=== PATIENT | male | born 1955 | race African-American/Black ===

== ENCOUNTER 2018-04-03 10:17 | Observation (INO) ==
[2018-04-03] MEDS ORDERED: FUROSEMIDE 100 MG/10 ML VIAL IV STA (10:58)
[2018-04-03] MEDS ORDERED: LEVOFLOXACIN INJ 500 MG in PREMIX 1 EACH IV STA (11:25)
[2018-04-03 12:03] LABS: Basophils % 0.2 % (0.0-0.8); Eosinophils # 0.1 10*3/uL (0.0-0.87); Eosinophils % 1.5 % (0.00-10.9); Hemoglobin 11.8 GM/DL (14.0-18.0); Immature Granulocytes % 0.7 %; Immature Granulocytes Absolute 0.07 #; Lymphocytes # 1.3 10*3/uL (1.4-4.0); Lymphocytes % 14.1 % (21.2-54.2); Mean Corpuscular HGB Conc 32.8 GM/DL (32-36); Mean Corpuscular Hemoglobin 31 PG (27-34); Mean Corpuscular Volume 93.3 FL (87-102); Mean Platelet Volume 10.3 FL (9.6-12.0); Monocytes # 0.7 10*3/uL (0.11-0.8); Monocytes % 7.8 % (1.7-12.7); Neutrophils # 7.1 10*3/uL (1.4-7.4); Neutrophils % 75.7 % (38.7-73.9); Platelet Count 358 T/CUMM (130-400); Red Blood Count 3.86 MC/CUMM (3.8-5.5); Red Cell Distribution Width 12.3 % (9.3-17.3); White Blood Count 9.4 T/CUMM (4-12)
[2018-04-03] MEDS ORDERED: PROMETHAZINE 25 MG/1 ML VIAL IM PRN (12:25)
[2018-04-03] MEDS ORDERED: ONDANSETRON 4 MG/2 ML VIAL IV PRN (12:25)
[2018-04-03 12:30] LABS: Albumin 3.4 G/DL (3.4-5.0); Bilirubin,Total 1.3 MG/DL (0.2-1.0); Calcium 8.7 MG/DL (8.5-10.1); Osmolality,Calculated 285.3 MOS/KG (273-304); Potassium 3.9 MMOL/L (3.5-5.1); Total Protein 7.6 G/DL (6.4-8.3)
[2018-04-03] MEDS ORDERED: ALBUTEROL 2.5 MG/3 ML NEB RESP TX PRN (12:52)
[2018-04-03] MEDS ORDERED: LEVOFLOXACIN INJ 750 MG in PREMIX 1 EACH IV SCH (13:00)
[2018-04-03] MEDS: ALBUTEROL/IPRATROPIUM 3 ML NEB RESP TX SCH ×2 (13:30→19:31)
[2018-04-03] MEDS: FUROSEMIDE 40 MG/4 ML VIAL IV SCH (15:53)
[2018-04-03] MEDS: POTASSIUM CHLORIDE 20 MEQ TABLET PO SCH ×2 (15:53→21:37)
[2018-04-03] MEDS: guaiFENesin/DM ER 600-30 MG TABLET PO SCH (21:37)
[2018-04-03] MEDS: SACUBITRIL/VALSARTAN 49-51 MG TABLET PO SCH (21:37)
[2018-04-03] MEDS: CARVEDILOL 25 MG TABLET PO SCH (21:38)
[2018-04-04] MEDS: ALBUTEROL/IPRATROPIUM 3 ML NEB RESP TX SCH ×4 (01:03→19:45)
[2018-04-04 06:06] LABS: Basophils % 0.3 % (0.0-0.8); Eosinophils # 0.2 10*3/uL (0.0-0.87); Eosinophils % 2.7 % (0.00-10.9); Hematocrit 32.4 VOL% (42.0-52.0); Hemoglobin 10.3 GM/DL (14.0-18.0); Immature Granulocytes % 0.4 %; Immature Granulocytes Absolute 0.03 #; Lymphocytes # 1.3 10*3/uL (1.4-4.0); Lymphocytes % 18.4 % (21.2-54.2); Mean Corpuscular HGB Conc 31.8 GM/DL (32-36); Mean Corpuscular Hemoglobin 29 PG (27-34); Mean Platelet Volume 10.5 FL (9.6-12.0); Monocytes # 0.6 10*3/uL (0.11-0.8); Monocytes % 7.7 % (1.7-12.7); Neutrophils # 5.1 10*3/uL (1.4-7.4); Neutrophils % 70.5 % (38.7-73.9); Platelet Count 298 T/CUMM (130-400); Red Blood Count 3.52 MC/CUMM (3.8-5.5); Red Cell Distribution Width 12.3 % (9.3-17.3); White Blood Count 7.2 T/CUMM (4-12)
[2018-04-04 06:33] LABS: Albumin 2.9 G/DL (3.4-5.0); Bilirubin,Total 1.2 MG/DL (0.2-1.0); Calcium 8.3 MG/DL (8.5-10.1); Osmolality,Calculated 286.1 MOS/KG (273-304); Risk Ratio 2.37; Thyroid Stimulating Hormone 1.72 uIU/ml (0.358-3.74); Total Protein 6.1 G/DL (6.4-8.3); VLDL CHOLESTEROL 21.4 MG/DL
[2018-04-04] MEDS: SACUBITRIL/VALSARTAN 49-51 MG TABLET PO SCH ×2 (08:52→20:57)
[2018-04-04] MEDS: sitaGLIPtin 100 MG TABLET PO SCH (08:52)
[2018-04-04] MEDS: FUROSEMIDE 40 MG/4 ML VIAL IV SCH ×2 (08:53→16:02)
[2018-04-04] MEDS: SPIRONOLACTONE 25 MG TABLET PO SCH (08:53)
[2018-04-04] MEDS: CARVEDILOL 25 MG TABLET PO SCH ×2 (08:53→20:57)
[2018-04-04] MEDS: BUMETANIDE 1 MG TABLET PO SCH (08:53)
[2018-04-04] MEDS: PANTOPRAZOLE 40 MG TABLET PO SCH (08:53)
[2018-04-04] MEDS: guaiFENesin/DM ER 600-30 MG TABLET PO SCH ×2 (08:53→20:57)
[2018-04-04] MEDS: POTASSIUM CHLORIDE 20 MEQ TABLET PO SCH ×2 (08:53→20:57)
[2018-04-04] MEDS: MULTIVITAMIN (CENTRUM) TABLET PO SCH (08:53)
[2018-04-04] MEDS: amLODIPine 5 MG TABLET PO SCH (13:40)
[2018-04-05] MEDS: ALBUTEROL/IPRATROPIUM 3 ML NEB RESP TX SCH ×2 (00:45→07:21)
[2018-04-05 06:01] LABS: Osmolality,Calculated 289.1 MOS/KG (273-304); Potassium 4.1 MMOL/L (3.5-5.1)
[2018-04-05] MEDS: SACUBITRIL/VALSARTAN 49-51 MG TABLET PO SCH (08:43)
[2018-04-05] MEDS: BUMETANIDE 1 MG TABLET PO SCH (08:43)
[2018-04-05] MEDS: FUROSEMIDE 40 MG/4 ML VIAL IV SCH (08:43)
[2018-04-05] MEDS: MULTIVITAMIN (CENTRUM) TABLET PO SCH (08:44)
[2018-04-05] MEDS: SPIRONOLACTONE 25 MG TABLET PO SCH (08:44)
[2018-04-05] MEDS: sitaGLIPtin 100 MG TABLET PO SCH (08:44)
[2018-04-05] MEDS: guaiFENesin/DM ER 600-30 MG TABLET PO SCH (08:44)
[2018-04-05] MEDS: POTASSIUM CHLORIDE 20 MEQ TABLET PO SCH (08:44)
[2018-04-05] MEDS: CARVEDILOL 25 MG TABLET PO SCH (08:44)
[2018-04-05] MEDS: amLODIPine 5 MG TABLET PO SCH (08:44)
[2018-04-05] MEDS: PANTOPRAZOLE 40 MG TABLET PO SCH (08:45)
[2018-04-05 11:09] VITALS: BP 132/98
== END 2018-04-05 12:00 | disposition home health service (06) ==
LOC: N.ED 10:17 → INTOOBSV 12:25 → N.EDINP 12:25 → N.5E 14:48
PROVIDERS: ADMIT Family Medicine; ATTEND Family Medicine

== ENCOUNTER 2020-07-23 09:22 | Inpatient (IN) ==
[2020-07-23 11:22] LABS: Basophils % 0.3 % (0.0-0.8); Eosinophils % 0.3 % (0.00-10.9); Hematocrit 39.4 VOL% (42.0-52.0); Hemoglobin 12.9 GM/DL (14.0-18.0); Immature Granulocytes % 1.1 %; Immature Granulocytes Absolute 0.07 #; Lymphocytes # 0.6 10*3/uL (1.4-4.0); Lymphocytes % 10.1 % (21.2-54.2); Mean Corpuscular HGB Conc 32.7 GM/DL (32-36); Mean Corpuscular Volume 87.9 FL (87-102); Mean Platelet Volume 9.7 FL (9.6-12.0); Monocytes % 4.7 % (1.7-12.7); Neutrophils % 83.5 % (38.7-73.9); Platelet Count 339 T/CUMM (130-400); Red Blood Count 4.48 MC/CUMM (3.8-5.5); Red Cell Distribution Width 11.9 % (9.3-17.3); White Blood Count 6.1 T/CUMM (4-12)
[2020-07-23 11:44] LABS: PT Patient Result 10.7 SECS (9.8-11.9)
[2020-07-23 11:51] LABS: Albumin 2.3 G/DL (3.4-5.0); Bilirubin,Total 0.9 MG/DL (0.2-1.0); Calcium 7.5 MG/DL (8.5-10.1); Ferritin 1570.5 ng/ml (26-388); Potassium 3.3 MMOL/L (3.5-5.1)
[2020-07-23] MEDS ORDERED: AZITHROMYCIN INJ 500 MG in SODIUM CHLORIDE 0.9% 250 ML IV STA (11:51)
[2020-07-23] MEDS ORDERED: DEXAMETHASONE 4 MG/1 ML VIAL IV STA (11:51)
[2020-07-23 11:57] LABS: Atypical Lymphocytes Few; Band Neutrophils 3 % (0-10); Lymphocytes 12 % (20-55); Metamyelocytes 1 %; Segmented Neutrophils 77 % (50-85); Total Cells Counted 100
[2020-07-23 11:58] LABS: Hypochromasia 1+; Microcytosis 1+; Platelet Estimate Normal
[2020-07-23] MEDS ORDERED: ONDANSETRON 4 MG/2 ML VIAL IV PRN (12:56)
[2020-07-23] MEDS ORDERED: GLUCAGON 1 MG VIAL IM PRN (12:56)
[2020-07-23] MEDS ORDERED: DEXTROSE 50% 25 GM/50 ML VIAL IV PRN (12:56)
[2020-07-23] MEDS: SODIUM CHLORIDE 0.9% 1,000 ML IV SCH ×2 (14:06→20:19)
[2020-07-23] MEDS ORDERED: cefTRIAXone 1,000 MG in SYRINGE 1 EACH IV SCH (15:00)
[2020-07-23] MEDS ORDERED: INFLUENZA VIRUS VACCINE 0.5 ML SYRINGE IM ONE (15:22)
[2020-07-23] MEDS: ZINC GLUCONATE 50 MG TABLET PO SCH (15:35)
[2020-07-23] MEDS: ENOXAPARIN 40 MG/0.4 ML SYRINGE SUBCUT SCH (15:35)
[2020-07-23] MEDS: CHOLECALCIFEROL 1,000 UNIT TABLET PO SCH (15:35)
[2020-07-23] MEDS: ASCORBIC ACID 500 MG TABLET PO SCH ×2 (15:35→20:41)
[2020-07-23] MEDS: POTASSIUM CHLORIDE 20 MEQ TABLET PO PRN (16:30)
[2020-07-23] MEDS: INSULIN LISPRO 100 UNIT/ML SUBCUT SCH ×2 (16:30→20:41)
[2020-07-23] MEDS: FAMOTIDINE 20 MG TABLET PO SCH (20:41)
[2020-07-24] MEDS: ENOXAPARIN 40 MG/0.4 ML SYRINGE SUBCUT SCH ×2 (00:18→14:35)
[2020-07-24 05:23] LABS: Basophils % 0.3 % (0.0-0.8); Hematocrit 33.7 VOL% (42.0-52.0); Hemoglobin 11.1 GM/DL (14.0-18.0); Immature Granulocytes Absolute 0.08 #; Lymphocytes # 0.6 10*3/uL (1.4-4.0); Lymphocytes % 15.1 % (21.2-54.2); Mean Corpuscular HGB Conc 32.9 GM/DL (32-36); Mean Corpuscular Volume 88.7 FL (87-102); Monocytes % 5.6 % (1.7-12.7); Platelet Count 333 T/CUMM (130-400); Red Cell Distribution Width 11.9 % (9.3-17.3); White Blood Count 3.9 T/CUMM (4-12)
[2020-07-24 05:51] LABS: Albumin 1.8 G/DL (3.4-5.0); Bilirubin,Total 1.5 MG/DL (0.2-1.0); Calcium 7.3 MG/DL (8.5-10.1); Ferritin 1125.7 ng/ml (26-388); Osmolality,Calculated 282.7 MOS/KG (273-304); Potassium 3.3 MMOL/L (3.5-5.1); Total Protein 5.5 G/DL (5.0-7.5)
[2020-07-24 05:52] LABS: Burr Cells Slight; Hypochromasia 1+; Microcytosis 1+
[2020-07-24 05:53] LABS: Platelet Estimate Normal
[2020-07-24] MEDS: POTASSIUM CHLORIDE 20 MEQ TABLET PO PRN ×3 (06:12→17:29)
[2020-07-24] MEDS: SODIUM CHLORIDE 0.9% 1,000 ML IV SCH (06:12)
[2020-07-24 06:50] LABS: Sedimentation Rate-Westergren 80 MM/HR (0-20)
[2020-07-24] MEDS ORDERED: MAGNESIUM SULF RIDER 2 GM in PREMIX 1 EACH IV ONE (08:09)
[2020-07-24] MEDS: INSULIN LISPRO 100 UNIT/ML SUBCUT SCH ×4 (08:27→20:56)
[2020-07-24] MEDS: FAMOTIDINE 20 MG TABLET PO SCH ×2 (08:28→20:57)
[2020-07-24] MEDS: CHOLECALCIFEROL 1,000 UNIT TABLET PO SCH (08:28)
[2020-07-24] MEDS: CETIRIZINE 10 MG TABLET PO SCH (08:29)
[2020-07-24] MEDS: PANTOPRAZOLE 40 MG TABLET PO SCH (08:29)
[2020-07-24] MEDS: ASCORBIC ACID 500 MG TABLET PO SCH ×2 (08:29→20:57)
[2020-07-24] MEDS: AZITHROMYCIN 250 MG TABLET PO SCH (08:45)
[2020-07-24] MEDS: ZINC GLUCONATE 50 MG TABLET PO SCH (08:45)
[2020-07-24] MEDS ORDERED: DEXAMETHASONE 4 MG/1 ML VIAL IV SCH (09:00)
[2020-07-24] MEDS ORDERED: LOPERAMIDE 2 MG CAPSULE PO PRN (10:59)
[2020-07-24] MEDS: methylPREDNISolone SOD SUC 40 MG/1 ML VIAL IV SCH ×2 (11:54→17:30)
[2020-07-24] MEDS: DESITIN 4OZ/NYSTATIN 15 GRAM MIXTURE PASTE TOP SCH ×2 (11:54→20:58)
[2020-07-24] MEDS: carvediloL 25 MG TABLET PO SCH ×2 (11:54→20:57)
[2020-07-24] MEDS: MELATONIN 3 MG TABLET PO PRN (20:57)
[2020-07-24] MEDS ORDERED: INSULIN GLARGINE 100 UNIT/ML SUBCUT SCH (21:00)
[2020-07-25] MEDS: POTASSIUM CHLORIDE 20 MEQ TABLET PO PRN ×3 (00:16→05:51)
[2020-07-25] MEDS: ENOXAPARIN 40 MG/0.4 ML SYRINGE SUBCUT SCH ×2 (00:17→12:55)
[2020-07-25] MEDS: methylPREDNISolone SOD SUC 40 MG/1 ML VIAL IV SCH ×3 (01:35→17:56)
[2020-07-25 06:05] LABS: Hematocrit 33.1 VOL% (42.0-52.0); Immature Granulocytes % 0.9 %; Immature Granulocytes Absolute 0.08 #; Lymphocytes # 0.7 10*3/uL (1.4-4.0); Mean Corpuscular HGB Conc 33.2 GM/DL (32-36); Mean Corpuscular Volume 89.9 FL (87-102); Mean Platelet Volume 10.1 FL (9.6-12.0); Monocytes % 2.7 % (1.7-12.7); Neutrophils % 88.4 % (38.7-73.9); Platelet Count 398 T/CUMM (130-400); Red Blood Count 3.68 MC/CUMM (3.8-5.5); Red Cell Distribution Width 11.9 % (9.3-17.3); White Blood Count 9.2 T/CUMM (4-12)
[2020-07-25 06:31] LABS: Albumin 1.9 G/DL (3.4-5.0); Bilirubin,Total 0.5 MG/DL (0.2-1.0); Calcium 7.2 MG/DL (8.5-10.1); Ferritin 933.1 ng/ml (26-388); Osmolality,Calculated 288.5 MOS/KG (273-304); Potassium 3.8 MMOL/L (3.5-5.1); Total Protein 5.2 G/DL (5.0-7.5)
[2020-07-25 06:42] LABS: Hypochromasia Slight; Platelet Estimate Adequate
[2020-07-25 06:43] LABS: Microcytosis Slight
[2020-07-25 07:05] LABS: Sedimentation Rate-Westergren 74 MM/HR (0-20)
[2020-07-25] MEDS: INSULIN LISPRO 100 UNIT/ML SUBCUT SCH ×4 (08:45→21:02)
[2020-07-25] MEDS: FAMOTIDINE 20 MG TABLET PO SCH ×2 (08:46→21:03)
[2020-07-25] MEDS: ASCORBIC ACID 500 MG TABLET PO SCH ×2 (08:46→21:04)
[2020-07-25] MEDS: CHOLECALCIFEROL 1,000 UNIT TABLET PO SCH (08:46)
[2020-07-25] MEDS: CETIRIZINE 10 MG TABLET PO SCH (08:46)
[2020-07-25] MEDS: carvediloL 25 MG TABLET PO SCH ×2 (08:46→21:03)
[2020-07-25] MEDS: AZITHROMYCIN 250 MG TABLET PO SCH (08:46)
[2020-07-25] MEDS: PANTOPRAZOLE 40 MG TABLET PO SCH (09:11)
[2020-07-25] MEDS: DESITIN 4OZ/NYSTATIN 15 GRAM MIXTURE PASTE TOP SCH ×2 (09:11→21:04)
[2020-07-25] MEDS: ZINC GLUCONATE 50 MG TABLET PO SCH (09:11)
[2020-07-25] MEDS: SODIUM CHLORIDE 0.9% 1,000 ML IV SCH (10:12)
[2020-07-25] MEDS: INSULIN GLARGINE 100 UNIT/ML SUBCUT SCH (21:03)
[2020-07-25] MEDS: ACETAMINOPHEN 325 MG TABLET PO PRN (21:04)
[2020-07-25] MEDS: MELATONIN 3 MG TABLET PO PRN (21:04)
[2020-07-26] MEDS: ENOXAPARIN 40 MG/0.4 ML SYRINGE SUBCUT SCH ×2 (00:08→14:00)
[2020-07-26] MEDS: methylPREDNISolone SOD SUC 40 MG/1 ML VIAL IV SCH ×3 (03:22→17:57)
[2020-07-26 05:28] LABS: Basophils % 0.1 % (0.0-0.8); Hematocrit 34.8 VOL% (42.0-52.0); Immature Granulocytes Absolute 0.13 #; Lymphocytes # 0.5 10*3/uL (1.4-4.0); Lymphocytes % 4.2 % (21.2-54.2); Mean Corpuscular HGB Conc 31.6 GM/DL (32-36); Mean Corpuscular Volume 91.3 FL (87-102); Mean Platelet Volume 10.2 FL (9.6-12.0); Monocytes % 2.8 % (1.7-12.7); Neutrophils % 91.9 % (38.7-73.9); Platelet Count 409 T/CUMM (130-400); Red Blood Count 3.81 MC/CUMM (3.8-5.5); Red Cell Distribution Width 12.1 % (9.3-17.3); White Blood Count 12.8 T/CUMM (4-12)
[2020-07-26 05:59] LABS: Hypochromasia 1+; Lymphocytes 2 % (20-55); Microcytosis 1+; Platelet Estimate Adequate; Segmented Neutrophils 97 % (50-85); Total Cells Counted 100
[2020-07-26 06:34] LABS: Sedimentation Rate-Westergren 62 MM/HR (0-20)
[2020-07-26 06:44] LABS: Albumin 1.9 G/DL (3.4-5.0); Bilirubin,Total 0.5 MG/DL (0.2-1.0); Calcium 7.4 MG/DL (8.5-10.1); Ferritin 671.8 ng/ml (26-388); Osmolality,Calculated 285.5 MOS/KG (273-304); Potassium 3.6 MMOL/L (3.5-5.1); Total Protein 5.7 G/DL (5.0-7.5)
[2020-07-26] MEDS: carvediloL 25 MG TABLET PO SCH ×2 (08:47→21:48)
[2020-07-26] MEDS: FAMOTIDINE 20 MG TABLET PO SCH ×2 (08:47→21:48)
[2020-07-26] MEDS: ZINC GLUCONATE 50 MG TABLET PO SCH (08:47)
[2020-07-26] MEDS: CETIRIZINE 10 MG TABLET PO SCH (08:47)
[2020-07-26] MEDS: AZITHROMYCIN 250 MG TABLET PO SCH (08:47)
[2020-07-26] MEDS: CHOLECALCIFEROL 1,000 UNIT TABLET PO SCH (08:47)
[2020-07-26] MEDS: PANTOPRAZOLE 40 MG TABLET PO SCH (08:47)
[2020-07-26] MEDS: DESITIN 4OZ/NYSTATIN 15 GRAM MIXTURE PASTE TOP SCH ×2 (08:50→21:48)
[2020-07-26] MEDS: ASCORBIC ACID 500 MG TABLET PO SCH ×2 (08:50→21:48)
[2020-07-26] MEDS: SODIUM CHLORIDE 0.9% 1,000 ML IV SCH (09:00)
[2020-07-26] MEDS: INSULIN LISPRO 100 UNIT/ML SUBCUT SCH ×4 (09:20→20:45)
[2020-07-26] MEDS ORDERED: FUROSEMIDE 40 MG/4 ML VIAL IV ONE (15:44)
[2020-07-26] MEDS ORDERED: POTASSIUM CHLORIDE 20 MEQ TABLET PO ONE (16:13)
[2020-07-26] MEDS: INSULIN GLARGINE 100 UNIT/ML SUBCUT SCH (21:07)
[2020-07-26] MEDS: ACETAMINOPHEN 325 MG TABLET PO PRN (21:48)
[2020-07-26] MEDS: MELATONIN 3 MG TABLET PO PRN (21:48)
[2020-07-27] MEDS: methylPREDNISolone SOD SUC 40 MG/1 ML VIAL IV SCH ×3 (01:32→17:39)
[2020-07-27] MEDS: ENOXAPARIN 40 MG/0.4 ML SYRINGE SUBCUT SCH ×2 (01:32→12:20)
[2020-07-27 06:01] LABS: Calcium 7.2 MG/DL (8.5-10.1); Osmolality,Calculated 293.1 MOS/KG (273-304); Potassium 4.1 MMOL/L (3.5-5.1)
[2020-07-27] MEDS: PANTOPRAZOLE 40 MG TABLET PO SCH (09:31)
[2020-07-27] MEDS: INSULIN LISPRO 100 UNIT/ML SUBCUT SCH ×4 (09:31→21:25)
[2020-07-27] MEDS: ZINC GLUCONATE 50 MG TABLET PO SCH (09:31)
[2020-07-27] MEDS: SACUBITRIL/VALSARTAN 49-51 MG TABLET PO SCH ×2 (09:31→21:25)
[2020-07-27] MEDS: carvediloL 25 MG TABLET PO SCH (09:31)
[2020-07-27] MEDS: ASCORBIC ACID 500 MG TABLET PO SCH ×2 (09:31→21:25)
[2020-07-27] MEDS: DESITIN 4OZ/NYSTATIN 15 GRAM MIXTURE PASTE TOP SCH ×2 (09:31→21:25)
[2020-07-27] MEDS: FAMOTIDINE 20 MG TABLET PO SCH ×2 (09:31→21:25)
[2020-07-27] MEDS: FUROSEMIDE 40 MG/4 ML VIAL IV SCH (09:31)
[2020-07-27] MEDS: CHOLECALCIFEROL 1,000 UNIT TABLET PO SCH (09:31)
[2020-07-27] MEDS: CETIRIZINE 10 MG TABLET PO SCH (09:31)
[2020-07-27] MEDS ORDERED: AMIODARONE 200 MG TABLET PO SCH (10:27)
[2020-07-27] MEDS: AMIODARONE 200 MG TABLET PO SCH ×2 (11:02→21:25)
[2020-07-27] MEDS: INSULIN GLARGINE 100 UNIT/ML SUBCUT SCH (21:25)
[2020-07-27] MEDS: carvediloL 12.5 MG TABLET PO SCH (21:25)
[2020-07-28] MEDS: ENOXAPARIN 40 MG/0.4 ML SYRINGE SUBCUT SCH ×2 (00:48→12:09)
[2020-07-28] MEDS: methylPREDNISolone SOD SUC 40 MG/1 ML VIAL IV SCH ×3 (01:53→17:43)
[2020-07-28 06:19] LABS: Basophils % 0.1 % (0.0-0.8); Hematocrit 35.8 VOL% (42.0-52.0); Hemoglobin 11.4 GM/DL (14.0-18.0); Immature Granulocytes % 1.1 %; Immature Granulocytes Absolute 0.14 #; Lymphocytes # 0.4 10*3/uL (1.4-4.0); Lymphocytes % 3.3 % (21.2-54.2); Mean Corpuscular HGB Conc 31.8 GM/DL (32-36); Mean Corpuscular Volume 90.4 FL (87-102); Monocytes % 2.9 % (1.7-12.7); Neutrophils % 92.6 % (38.7-73.9); Platelet Count 389 T/CUMM (130-400); Red Blood Count 3.96 MC/CUMM (3.8-5.5); White Blood Count 12.2 T/CUMM (4-12)
[2020-07-28 06:39] LABS: Calcium 7.3 MG/DL (8.5-10.1); Osmolality,Calculated 286.5 MOS/KG (273-304); Potassium 3.6 MMOL/L (3.5-5.1)
[2020-07-28 06:43] LABS: Hypochromasia 1+; Lymphocytes 2 % (20-55); Microcytosis 1+; Segmented Neutrophils 97 % (50-85); Total Cells Counted 100
[2020-07-28 06:44] LABS: Platelet Estimate Normal
[2020-07-28] MEDS ORDERED: SACUBITRIL/VALSARTAN 49-51 MG TABLET PO SCH (09:00)
[2020-07-28] MEDS ORDERED: FUROSEMIDE 40 MG/4 ML VIAL IV SCH (09:00)
[2020-07-28] MEDS ORDERED: POTASSIUM CHLORIDE 20 MEQ TABLET PO ONE (09:20)
[2020-07-28] MEDS: ZINC GLUCONATE 50 MG TABLET PO SCH (09:36)
[2020-07-28] MEDS: POTASSIUM CHLORIDE 20 MEQ TABLET PO PRN ×2 (09:36→12:09)
[2020-07-28] MEDS: CHOLECALCIFEROL 1,000 UNIT TABLET PO SCH (09:36)
[2020-07-28] MEDS: INSULIN LISPRO 100 UNIT/ML SUBCUT SCH ×3 (09:36→15:55)
[2020-07-28] MEDS: carvediloL 12.5 MG TABLET PO SCH (09:36)
[2020-07-28] MEDS: DESITIN 4OZ/NYSTATIN 15 GRAM MIXTURE PASTE TOP SCH (09:36)
[2020-07-28] MEDS: FUROSEMIDE 40 MG/4 ML VIAL IV SCH (09:36)
[2020-07-28] MEDS: PANTOPRAZOLE 40 MG TABLET PO SCH (09:36)
[2020-07-28] MEDS: ASCORBIC ACID 500 MG TABLET PO SCH (09:36)
[2020-07-28] MEDS: FAMOTIDINE 20 MG TABLET PO SCH (09:36)
[2020-07-28] MEDS: AMIODARONE 200 MG TABLET PO SCH (09:36)
[2020-07-28] MEDS: CETIRIZINE 10 MG TABLET PO SCH (09:36)
[2020-07-28] MEDS ORDERED: methIMAzole 5 MG TABLET PO SCH (15:00)
[2020-07-28 15:38] VITALS: BP 143/85
== END 2020-07-28 18:30 | disposition home or self-care (01) | DRG 177 ==
LOC: N.ED 09:22 → N.EDINP 12:49 → SUATTDRO 12:49 → N.2E 13:31
PROVIDERS: ADMIT Internal Medicine; ATTEND Internal Medicine

== ENCOUNTER 2021-02-14 10:16 | Observation (INO) ==
[2021-02-14 10:55] LABS: Basophils % 0.1 % (0.0-0.8); Eosinophils % 0.2 % (0.00-10.9); Hematocrit 31.9 VOL% (42.0-52.0); Hemoglobin 10.1 GM/DL (14.0-18.0); Immature Granulocytes % 0.6 %; Immature Granulocytes Absolute 0.08 #; Lymphocytes # 0.8 10*3/uL (1.4-4.0); Lymphocytes % 6.8 % (21.2-54.2); Mean Corpuscular HGB Conc 31.7 GM/DL (32-36); Mean Corpuscular Volume 93.8 FL (87-102); Mean Platelet Volume 10.6 FL (9.6-12.0); Monocytes % 6.7 % (1.7-12.7); Neutrophils % 85.6 % (38.7-73.9); Platelet Count 247 T/CUMM (130-400); Red Cell Distribution Width 13.4 % (9.3-17.3); White Blood Count 12.4 T/CUMM (4-12)
[2021-02-14 11:04] LABS: ABG Base Excess 3.8 MMOL/L (-2.5-2.5); ABG HCO3 27.7 MMOL/L (20-26); ABG Oxygen Saturation 91.2 % (95-100); ABG PCO2 35.8 MM HG (35-48); ABG PH 7.488 (7.35-7.45); ABG TCO2 24.6 MMOL/L (23-27)
[2021-02-14 11:09] LABS: PT Patient Result 11.4 SECS (10.5-12.0)
[2021-02-14 11:17] LABS: Albumin 3.5 G/DL (3.4-5.0); Bilirubin,Total 2.7 MG/DL (0.20-1.00); Calcium 8.6 MG/DL (8.5-10.1); Osmolality,Calculated 285.3 MOS/KG (273-304); Potassium 3.8 MMOL/L (3.5-5.1); Total Protein 6.5 G/DL (6.4-8.2)
[2021-02-14] MEDS ORDERED: AZITHROMYCIN INJ 500 MG in SODIUM CHLORIDE 0.9% 250 ML IV STA (11:44)
[2021-02-14] MEDS ORDERED: cefTRIAXone 1,000 MG in SODIUM CHLORIDE 0.9% 100 ML IV STA (11:44)
[2021-02-14] MEDS ORDERED: FUROSEMIDE 40 MG/4 ML VIAL IV STA (12:14)
[2021-02-14] MEDS ORDERED: ACETAMINOPHEN 325 MG TABLET PO PRN (13:38)
[2021-02-14] MEDS ORDERED: hydrALAZINE 20 MG/1 ML VIAL IV PRN (13:38)
[2021-02-14] MEDS ORDERED: GLUCAGON 1 MG VIAL IM PRN (13:38)
[2021-02-14] MEDS ORDERED: ONDANSETRON 4 MG/2 ML VIAL IV PRN (13:38)
[2021-02-14] MEDS ORDERED: DEXTROSE 50% 25 GM/50 ML VIAL IV PRN (13:38)
[2021-02-14 14:48] LABS: Risk Ratio 1.54; Thyroid Stimulating Hormone 0.828 uIU/ml (0.358-3.74); VLDL Cholesterol 12.8 MG/DL
[2021-02-14] MEDS: methIMAzole 5 MG TABLET PO SCH ×2 (14:49→21:14)
[2021-02-14] MEDS: ENOXAPARIN 40 MG/0.4 ML SYRINGE SUBCUT SCH (14:51)
[2021-02-14] MEDS: INSULIN LISPRO 100 UNIT/ML SUBCUT SCH ×2 (16:11→21:30)
[2021-02-14] MEDS: SACUBITRIL/VALSARTAN 49-51 MG TABLET PO SCH (21:13)
[2021-02-14] MEDS: AMIODARONE 200 MG TABLET PO SCH (21:14)
[2021-02-14] MEDS: FUROSEMIDE 40 MG/4 ML VIAL IV SCH (21:14)
[2021-02-14] MEDS: carvediloL 12.5 MG TABLET PO SCH (21:15)
[2021-02-15 06:25] LABS: Basophils % 0.2 % (0.0-0.8); Eosinophils % 0.4 % (0.00-10.9); Hematocrit 27.8 VOL% (42.0-52.0); Hemoglobin 8.6 GM/DL (14.0-18.0); Immature Granulocytes % 0.8 %; Immature Granulocytes Absolute 0.09 #; Lymphocytes % 9.5 % (21.2-54.2); Mean Corpuscular HGB Conc 30.9 GM/DL (32-36); Mean Corpuscular Volume 96.5 FL (87-102); Mean Platelet Volume 10.9 FL (9.6-12.0); Monocytes % 6.6 % (1.7-12.7); Neutrophils % 82.5 % (38.7-73.9); Platelet Count 221 T/CUMM (130-400); Red Blood Count 2.88 MC/CUMM (3.8-5.5); Red Cell Distribution Width 13.3 % (9.3-17.3); White Blood Count 10.9 T/CUMM (4-12)
[2021-02-15 07:02] LABS: Calcium 7.9 MG/DL (8.5-10.1); Osmolality,Calculated 288.3 MOS/KG (273-304); Potassium 3.8 MMOL/L (3.5-5.1)
[2021-02-15] MEDS: INSULIN LISPRO 100 UNIT/ML SUBCUT SCH ×4 (08:24→21:30)
[2021-02-15] MEDS: PANTOPRAZOLE 40 MG TABLET PO SCH (11:01)
[2021-02-15] MEDS: carvediloL 12.5 MG TABLET PO SCH ×2 (11:01→20:40)
[2021-02-15] MEDS: AMIODARONE 200 MG TABLET PO SCH ×2 (11:01→20:40)
[2021-02-15] MEDS: SACUBITRIL/VALSARTAN 49-51 MG TABLET PO SCH (11:02)
[2021-02-15] MEDS: methIMAzole 5 MG TABLET PO SCH ×3 (11:02→20:40)
[2021-02-15] MEDS ORDERED: FUROSEMIDE 40 MG/4 ML VIAL ONE (11:19)
[2021-02-15] MEDS: FUROSEMIDE 40 MG/4 ML VIAL IV SCH (11:22)
[2021-02-15] MEDS: AZITHROMYCIN INJ 500 MG in SODIUM CHLORIDE 0.9% 250 ML IV SCH (13:48)
[2021-02-15] MEDS: cefTRIAXone 1,000 MG in SODIUM CHLORIDE 0.9% 100 ML IV SCH (13:48)
[2021-02-15] MEDS: ENOXAPARIN 40 MG/0.4 ML SYRINGE SUBCUT SCH (14:52)
[2021-02-15 15:35] LABS: Glucose,Pleural Fluid 230 MG/DL; LDH,Body Fluid 68 U/L
[2021-02-15 18:06] LABS: Lymphocytes,Pleural Fluid 92 %; Monocytes,Pleural Fluid 2 %; Neutrophils,Pleural Fluid 6 %
[2021-02-15 18:13] LABS: RBC,Pleural Fluid 16836 T/CUMM
[2021-02-16 05:26] LABS: Basophils % 0.3 % (0.0-0.8); Eosinophils # 0.2 10*3/uL (0.0-0.87); Eosinophils % 2.9 % (0.00-10.9); Hematocrit 27.5 VOL% (42.0-52.0); Hemoglobin 8.7 GM/DL (14.0-18.0); Immature Granulocytes % 0.4 %; Immature Granulocytes Absolute 0.03 #; Lymphocytes # 0.9 10*3/uL (1.4-4.0); Lymphocytes % 11.4 % (21.2-54.2); Mean Corpuscular HGB Conc 31.6 GM/DL (32-36); Mean Corpuscular Volume 94.8 FL (87-102); Mean Platelet Volume 11.1 FL (9.6-12.0); Monocytes % 8.3 % (1.7-12.7); Neutrophils % 76.7 % (38.7-73.9); Platelet Count 224 T/CUMM (130-400); Red Cell Distribution Width 12.9 % (9.3-17.3)
[2021-02-16 05:58] LABS: Osmolality,Calculated 286.7 MOS/KG (273-304); Potassium 3.5 MMOL/L (3.5-5.1)
[2021-02-16] MEDS: PANTOPRAZOLE 40 MG TABLET PO SCH (09:51)
[2021-02-16] MEDS: carvediloL 12.5 MG TABLET PO SCH ×2 (09:51→20:37)
[2021-02-16] MEDS: AMIODARONE 200 MG TABLET PO SCH ×2 (09:52→20:37)
[2021-02-16] MEDS: methIMAzole 5 MG TABLET PO SCH ×3 (09:52→20:37)
[2021-02-16] MEDS: INSULIN LISPRO 100 UNIT/ML SUBCUT SCH ×4 (10:07→20:37)
[2021-02-16] MEDS: AZITHROMYCIN INJ 500 MG in SODIUM CHLORIDE 0.9% 250 ML IV SCH (12:35)
[2021-02-16] MEDS: ENOXAPARIN 40 MG/0.4 ML SYRINGE SUBCUT SCH (14:20)
[2021-02-16] MEDS: cefTRIAXone 1,000 MG in SODIUM CHLORIDE 0.9% 100 ML IV SCH (14:20)
[2021-02-17 05:33] LABS: Basophils % 0.4 % (0.0-0.8); Eosinophils # 0.2 10*3/uL (0.0-0.87); Eosinophils % 3.3 % (0.00-10.9); Hematocrit 29.1 VOL% (42.0-52.0); Hemoglobin 9.1 GM/DL (14.0-18.0); Immature Granulocytes % 0.6 %; Immature Granulocytes Absolute 0.04 #; Lymphocytes # 0.9 10*3/uL (1.4-4.0); Lymphocytes % 13.4 % (21.2-54.2); Mean Corpuscular HGB Conc 31.3 GM/DL (32-36); Mean Corpuscular Volume 95.4 FL (87-102); Monocytes % 7.1 % (1.7-12.7); Neutrophils % 75.2 % (38.7-73.9); Platelet Count 267 T/CUMM (130-400); Red Blood Count 3.05 MC/CUMM (3.8-5.5); Red Cell Distribution Width 12.9 % (9.3-17.3); White Blood Count 6.7 T/CUMM (4-12)
[2021-02-17 06:40] LABS: Calcium 8.1 MG/DL (8.5-10.1); Osmolality,Calculated 292.3 MOS/KG (273-304); Potassium 3.6 MMOL/L (3.5-5.1)
[2021-02-17 06:58] LABS: Uric Acid 9.6 MG/DL (3.5-7.2)
[2021-02-17] MEDS: INSULIN LISPRO 100 UNIT/ML SUBCUT SCH ×2 (08:00→14:26)
[2021-02-17] MEDS: methIMAzole 5 MG TABLET PO SCH (11:00)
[2021-02-17] MEDS: AMIODARONE 200 MG TABLET PO SCH (11:00)
[2021-02-17] MEDS: carvediloL 12.5 MG TABLET PO SCH (11:00)
[2021-02-17] MEDS: PANTOPRAZOLE 40 MG TABLET PO SCH (11:00)
[2021-02-17 13:53] VITALS: BP 120/67
[2021-02-17] MEDS: AZITHROMYCIN INJ 500 MG in SODIUM CHLORIDE 0.9% 250 ML IV SCH (14:53)
[2021-02-17] MEDS: cefTRIAXone 1,000 MG in SODIUM CHLORIDE 0.9% 100 ML IV SCH (15:20)
[2021-02-17] MEDS: ENOXAPARIN 40 MG/0.4 ML SYRINGE SUBCUT SCH (15:20)
== END 2021-02-17 15:46 | disposition home or self-care (01) ==
LOC: N.ED 10:16 → N.EDINP 10:16 → N.TELEN 13:23
PROVIDERS: ADMIT Internal Medicine; ATTEND Internal Medicine

== ENCOUNTER 2021-04-07 08:07 | Inpatient (IN) ==
[2021-04-07] MEDS ORDERED: FUROSEMIDE 40 MG/4 ML VIAL IV STA (08:58)
[2021-04-07 09:44] LABS: Basophils % 0.2 % (0.0-0.8); Eosinophils # 0.1 10*3/uL (0.0-0.87); Eosinophils % 1.6 % (0.00-10.9); Hematocrit 37.4 VOL% (42.0-52.0); Hemoglobin 11.7 GM/DL (14.0-18.0); Immature Granulocytes % 0.4 %; Immature Granulocytes Absolute 0.03 #; Lymphocytes # 0.8 10*3/uL (1.4-4.0); Lymphocytes % 10.5 % (21.2-54.2); Mean Corpuscular HGB Conc 31.3 GM/DL (32-36); Mean Corpuscular Volume 94.4 FL (87-102); Mean Platelet Volume 10.2 FL (9.6-12.0); Monocytes % 6.5 % (1.7-12.7); Neutrophils % 80.8 % (38.7-73.9); Platelet Count 291 T/CUMM (130-400); Red Blood Count 3.96 MC/CUMM (3.8-5.5)
[2021-04-07 10:07] LABS: Albumin 3.4 G/DL (3.4-5.0); Bilirubin,Total 0.9 MG/DL (0.20-1.00); Calcium 8.6 MG/DL (8.5-10.1); Osmolality,Calculated 294.6 MOS/KG (273-304); Potassium 4.1 MMOL/L (3.5-5.1); Total Protein 6.7 G/DL (6.4-8.2)
[2021-04-07 10:19] LABS: Bilirubin,Urine Negative (Negative); Blood, Urine Negative (Negative); Glucose,Urine (UA) Negative (Negative); Ketones,Urine Negative (Negative); Mucus,Urine Occasional /LPF (Occasional); Nitrite,Urine Negative (Negative); Protein,Urine 100 MG/DL; RBC,Urine 1 /HPF (0-4); Squamous Epithelial Cell,Urine Occasional /HPF (0-10); Urine Appearance CLEAR (Clear); Urine Color Yellow (Yellow); Urine Specific Gravity 1.014 (1.001-1.035); Urine Urobilinogen < 2.0 EU/DL (0.2-1.0)
[2021-04-07 10:55] LABS: Barbiturates Screen,Urine Negative (Negative); Benzodiazepines Screen,Urine Negative (Negative); Cannabinoid Screen,Urine Negative (Negative); Opiate Screen,Urine Negative (Negative); Phencyclidine Screen,Urine Negative (Negative)
[2021-04-07] MEDS ORDERED: DEXTROSE 50% 25 GM/50 ML SYRINGE IV PRN (12:45)
[2021-04-07] MEDS ORDERED: GLUCAGON 1 MG VIAL IM PRN (12:45)
[2021-04-07] MEDS ORDERED: ONDANSETRON 4 MG/2 ML VIAL IV PRN (12:45)
[2021-04-07] MEDS ORDERED: BISACODYL 5 MG TABLET PO PRN (12:45)
[2021-04-07] MEDS ORDERED: guaiFENesin/DM ER 600-30 MG TABLET PO PRN (12:45)
[2021-04-07] MEDS ORDERED: ACETAMINOPHEN 325 MG TABLET PO PRN (12:45)
[2021-04-07 13:05] LABS: PT Patient Result 11.2 SECS (10.5-12.0)
[2021-04-07 15:51] LABS: LDH,Body Fluid 45 U/L; Total Protein,Body Fluid < 2.0 G/DL
[2021-04-07 16:34] LABS: Eosinophils,Pleural Fluid 3 %; Lymphocytes,Pleural Fluid 80 %; Monocytes,Pleural Fluid 10 %; Neutrophils,Pleural Fluid 7 %
[2021-04-07 16:37] LABS: RBC,Pleural Fluid 3041 T/CUMM
[2021-04-07 16:47] LABS: Albumin 3.8 G/DL (3.4-5.0); Total Protein 7.4 G/DL (6.4-8.2)
[2021-04-07] MEDS: INSULIN LISPRO 100 UNIT/ML SUBCUT SCH ×2 (18:26→21:51)
[2021-04-07] MEDS: carvediloL 12.5 MG TABLET PO SCH (18:27)
[2021-04-07] MEDS: SACUBITRIL/VALSARTAN 49-51 MG TABLET PO SCH (21:52)
[2021-04-08 06:04] LABS: Basophils % 0.4 % (0.0-0.8); Eosinophils # 0.2 10*3/uL (0.0-0.87); Eosinophils % 2.1 % (0.00-10.9); Hematocrit 33.3 VOL% (42.0-52.0); Hemoglobin 10.4 GM/DL (14.0-18.0); Immature Granulocytes % 0.4 %; Immature Granulocytes Absolute 0.03 #; Lymphocytes % 12.6 % (21.2-54.2); Mean Corpuscular HGB Conc 31.2 GM/DL (32-36); Mean Corpuscular Volume 94.3 FL (87-102); Mean Platelet Volume 10.6 FL (9.6-12.0); Monocytes % 8.5 % (1.7-12.7); Platelet Count 282 T/CUMM (130-400); Red Blood Count 3.53 MC/CUMM (3.8-5.5); Red Cell Distribution Width 13.2 % (9.3-17.3); White Blood Count 7.8 T/CUMM (4-12)
[2021-04-08 06:20] LABS: Calcium 8.7 MG/DL (8.5-10.1); Osmolality,Calculated 289.8 MOS/KG (273-304); Potassium 3.8 MMOL/L (3.5-5.1); Risk Ratio 1.88; VLDL Cholesterol 11.2 MG/DL
[2021-04-08] MEDS: MULTIVITAMIN (CENTRUM) TABLET PO SCH (08:44)
[2021-04-08] MEDS: SACUBITRIL/VALSARTAN 49-51 MG TABLET PO SCH ×2 (08:44→23:14)
[2021-04-08] MEDS: DAPAGLIFLOZIN 10 MG TABLET PO SCH (08:44)
[2021-04-08] MEDS: carvediloL 12.5 MG TABLET PO SCH ×2 (08:44→17:28)
[2021-04-08] MEDS: amLODIPine 5 MG TABLET PO SCH (08:45)
[2021-04-08] MEDS: AMIODARONE 200 MG TABLET PO SCH (08:45)
[2021-04-08] MEDS: INSULIN LISPRO 100 UNIT/ML SUBCUT SCH ×3 (08:46→17:00)
[2021-04-08] MEDS: cefTRIAXone 1,000 MG in SODIUM CHLORIDE 0.9% 100 ML IV SCH (12:56)
[2021-04-08] MEDS: DOXYCYCLINE HYCLATE INJ 100 MG in SODIUM CHLORIDE 0.9% 100 ML IV SCH ×2 (13:27→21:00)
[2021-04-08] MEDS: FUROSEMIDE 40 MG/4 ML VIAL IV SCH (13:29)
[2021-04-09] MEDS: INSULIN LISPRO 100 UNIT/ML SUBCUT SCH ×5 (00:31→22:19)
[2021-04-09 05:28] LABS: Basophils % 0.4 % (0.0-0.8); Eosinophils # 0.2 10*3/uL (0.0-0.87); Eosinophils % 2.7 % (0.00-10.9); Hemoglobin 10.5 GM/DL (14.0-18.0); Immature Granulocytes % 0.3 %; Immature Granulocytes Absolute 0.02 #; Lymphocytes # 1.1 10*3/uL (1.4-4.0); Lymphocytes % 16.3 % (21.2-54.2); Mean Corpuscular HGB Conc 31.8 GM/DL (32-36); Mean Corpuscular Volume 93.8 FL (87-102); Mean Platelet Volume 10.8 FL (9.6-12.0); Monocytes % 8.5 % (1.7-12.7); Neutrophils % 71.8 % (38.7-73.9); Platelet Count 285 T/CUMM (130-400); Red Blood Count 3.52 MC/CUMM (3.8-5.5); Red Cell Distribution Width 12.8 % (9.3-17.3)
[2021-04-09 05:51] LABS: Calcium 8.8 MG/DL (8.5-10.1); Osmolality,Calculated 281.5 MOS/KG (273-304); Potassium 4.1 MMOL/L (3.5-5.1)
[2021-04-09] MEDS: SACUBITRIL/VALSARTAN 49-51 MG TABLET PO SCH ×2 (08:37→22:19)
[2021-04-09] MEDS: MULTIVITAMIN (CENTRUM) TABLET PO SCH (08:37)
[2021-04-09] MEDS: DAPAGLIFLOZIN 10 MG TABLET PO SCH (08:37)
[2021-04-09] MEDS: AMIODARONE 200 MG TABLET PO SCH (08:38)
[2021-04-09] MEDS: amLODIPine 5 MG TABLET PO SCH (08:38)
[2021-04-09] MEDS: FUROSEMIDE 40 MG/4 ML VIAL IV SCH (08:38)
[2021-04-09] MEDS: carvediloL 12.5 MG TABLET PO SCH ×2 (08:38→16:25)
[2021-04-09 11:36] LABS: PT Patient Result 10.9 SECS (10.5-12.0)
[2021-04-09] MEDS: cefTRIAXone 1,000 MG in SODIUM CHLORIDE 0.9% 100 ML IV SCH (12:29)
[2021-04-09] MEDS: DOXYCYCLINE HYCLATE INJ 100 MG in SODIUM CHLORIDE 0.9% 100 ML IV SCH (15:20)
[2021-04-10 06:01] LABS: Basophils % 0.4 % (0.0-0.8); Eosinophils # 0.2 10*3/uL (0.0-0.87); Hematocrit 31.8 VOL% (42.0-52.0); Hemoglobin 10.1 GM/DL (14.0-18.0); Immature Granulocytes % 0.5 %; Immature Granulocytes Absolute 0.04 #; Mean Corpuscular HGB Conc 31.8 GM/DL (32-36); Mean Corpuscular Volume 92.7 FL (87-102); Mean Platelet Volume 10.4 FL (9.6-12.0); Monocytes % 7.9 % (1.7-12.7); Neutrophils % 75.2 % (38.7-73.9); Platelet Count 288 T/CUMM (130-400); Red Blood Count 3.43 MC/CUMM (3.8-5.5); Red Cell Distribution Width 12.9 % (9.3-17.3); White Blood Count 7.7 T/CUMM (4-12)
[2021-04-10 06:20] LABS: Calcium 8.7 MG/DL (8.5-10.1); Osmolality,Calculated 282.7 MOS/KG (273-304); Potassium 3.9 MMOL/L (3.5-5.1)
[2021-04-10] MEDS: DAPAGLIFLOZIN 10 MG TABLET PO SCH (08:39)
[2021-04-10] MEDS: SACUBITRIL/VALSARTAN 49-51 MG TABLET PO SCH (08:39)
[2021-04-10] MEDS: amLODIPine 5 MG TABLET PO SCH (08:39)
[2021-04-10] MEDS: AMIODARONE 200 MG TABLET PO SCH (08:39)
[2021-04-10] MEDS: MULTIVITAMIN (CENTRUM) TABLET PO SCH (08:39)
[2021-04-10] MEDS: FUROSEMIDE 40 MG/4 ML VIAL IV SCH (08:40)
[2021-04-10] MEDS: carvediloL 12.5 MG TABLET PO SCH (08:40)
[2021-04-10] MEDS: INSULIN LISPRO 100 UNIT/ML SUBCUT SCH ×2 (08:40→12:03)
[2021-04-10 12:15] VITALS: BP 138/66
== END 2021-04-10 14:18 | disposition home or self-care (01) | DRG 291 ==
LOC: N.ED 08:07 → SUATTDRO 12:45 → N.EDINP 12:45 → N.3E 14:09
PROVIDERS: ADMIT Internal Medicine; ATTEND Phlebology

== ENCOUNTER 2021-09-16 08:12 | Observation (INO) ==
[2021-09-16 08:51] LABS: Basophils % 0.3 % (0.0-0.8); Eosinophils # 0.1 10*3/uL (0.0-0.87); Eosinophils % 1.9 % (0.00-10.9); Hematocrit 35.3 VOL% (42.0-52.0); Hemoglobin 11.4 GM/DL (14.0-18.0); Immature Granulocytes % 0.4 %; Immature Granulocytes Absolute 0.03 #; Lymphocytes % 14.2 % (21.2-54.2); Mean Corpuscular HGB Conc 32.3 GM/DL (32-36); Mean Corpuscular Volume 92.2 FL (87-102); Mean Platelet Volume 9.9 FL (9.6-12.0); Monocytes # 0.5 10*3/uL (0.11-0.8); Monocytes % 7.5 % (1.7-12.7); Neutrophils % 75.7 % (38.7-73.9); Platelet Count 265 T/CUMM (130-400); Red Blood Count 3.83 MC/CUMM (3.8-5.5); Red Cell Distribution Width 14.4 % (9.3-17.3); White Blood Count 7.2 T/CUMM (4-12)
[2021-09-16 09:43] LABS: Albumin 3.1 G/DL (3.4-5.0); Bilirubin,Total 1.1 MG/DL (0.20-1.00); Calcium 8.3 MG/DL (8.5-10.1); Potassium 3.9 MMOL/L (3.5-5.1); Total Protein 6.3 G/DL (6.4-8.2)
[2021-09-16] MEDS ORDERED: FUROSEMIDE 40 MG/4 ML VIAL IV STA (10:47)
[2021-09-16] MEDS ORDERED: cefTRIAXone 1,000 MG in SODIUM CHLORIDE 0.9% 100 ML IV STA (10:49)
[2021-09-16] MEDS ORDERED: AZITHROMYCIN INJ 500 MG in SODIUM CHLORIDE 0.9% 250 ML IV STA (10:49)
[2021-09-16] MEDS ORDERED: GLUCAGON 1 MG VIAL IM PRN ×2 (13:27)
[2021-09-16] MEDS ORDERED: DEXTROSE 10% 25 GM/250 ML BAG IV PRN (13:27)
[2021-09-16] MEDS ORDERED: ONDANSETRON 4 MG/2 ML VIAL IV PRN (13:27)
[2021-09-16] MEDS ORDERED: ACETAMINOPHEN 325 MG TABLET PO PRN (13:27)
[2021-09-16] MEDS ORDERED: DEXTROSE 50% 25 GM/50 ML VIAL IV PRN (13:27)
[2021-09-16] MEDS: FUROSEMIDE 40 MG/4 ML VIAL IV SCH (16:42)
[2021-09-16] MEDS: INSULIN LISPRO 100 UNIT/ML SUBCUT SCH ×2 (16:42→21:47)
[2021-09-16] MEDS: ENOXAPARIN 30 MG/0.3 ML SYRINGE SUBCUT SCH (16:42)
[2021-09-17 05:00] LABS: Basophils % 0.3 % (0.0-0.8); Eosinophils # 0.2 10*3/uL (0.0-0.87); Eosinophils % 2.4 % (0.00-10.9); Hematocrit 33.6 VOL% (42.0-52.0); Hemoglobin 10.8 GM/DL (14.0-18.0); Immature Granulocytes % 0.3 %; Immature Granulocytes Absolute 0.02 #; Lymphocytes # 1.2 10*3/uL (1.4-4.0); Lymphocytes % 16.1 % (21.2-54.2); Mean Corpuscular HGB Conc 32.1 GM/DL (32-36); Mean Corpuscular Volume 93.1 FL (87-102); Mean Platelet Volume 10.6 FL (9.6-12.0); Monocytes # 0.8 10*3/uL (0.11-0.8); Neutrophils % 70.9 % (38.7-73.9); Platelet Count 264 T/CUMM (130-400); Red Blood Count 3.61 MC/CUMM (3.8-5.5); Red Cell Distribution Width 14.2 % (9.3-17.3); White Blood Count 7.6 T/CUMM (4-12)
[2021-09-17 05:26] LABS: Albumin 2.9 G/DL (3.4-5.0); Osmolality,Calculated 282.3 MOS/KG (273-304); Potassium 3.5 MMOL/L (3.5-5.1); Total Protein 5.9 G/DL (6.4-8.2)
[2021-09-17] MEDS: INSULIN LISPRO 100 UNIT/ML SUBCUT SCH ×2 (07:28→11:41)
[2021-09-17] MEDS ORDERED: carvediloL 12.5 MG TABLET PO SCH (08:00)
[2021-09-17] MEDS: FUROSEMIDE 40 MG/4 ML VIAL IV SCH (08:57)
[2021-09-17] MEDS ORDERED: AMIODARONE 200 MG TABLET PO SCH (09:00)
[2021-09-17] MEDS ORDERED: GABAPENTIN 100 MG CAPSULE PO SCH (09:00)
[2021-09-17] MEDS ORDERED: MULTIVITAMIN (CENTRUM) TABLET PO SCH (09:00)
[2021-09-17] MEDS ORDERED: SACUBITRIL/VALSARTAN 49-51 MG TABLET PO SCH (09:00)
[2021-09-17 11:47] VITALS: BP 155/88
[2021-09-17] MEDS: ENOXAPARIN 30 MG/0.3 ML SYRINGE SUBCUT SCH (12:34)
== END 2021-09-17 13:01 | disposition home or self-care (01) ==
LOC: N.ED 08:12 → N.EDINP 08:12 → N.3E 18:34
PROVIDERS: ADMIT Internal Medicine Geriatric Medicine; ATTEND Internal Medicine Geriatric Medicine

== ENCOUNTER 2022-04-23 12:12 | Inpatient (IN) ==
[2022-04-23 13:03] LABS: Basophils % 0.2 % (0.0-0.8); Eosinophils % 0.2 % (0.00-10.9); Hematocrit 34.9 VOL% (42.0-52.0); Hemoglobin 11.2 GM/DL (14.0-18.0); Immature Granulocytes % 0.7 %; Immature Granulocytes Absolute 0.15 #; Lymphocytes % 4.9 % (21.2-54.2); Mean Corpuscular HGB Conc 32.1 GM/DL (32-36); Mean Corpuscular Volume 93.8 FL (87-102); Monocytes # 1.3 10*3/uL (0.11-0.8); Monocytes % 6.3 % (1.7-12.7); Neutrophils % 87.7 % (38.7-73.9); Platelet Count 322 T/CUMM (130-400); Red Blood Count 3.72 MC/CUMM (3.8-5.5); Red Cell Distribution Width 12.2 % (9.3-17.3); White Blood Count 21.2 T/CUMM (4-12)
[2022-04-23 13:32] LABS: Albumin 2.6 G/DL (3.4-5.0); Bilirubin,Total 0.7 MG/DL (0.20-1.00); Calcium 8.6 MG/DL (8.5-10.1); Osmolality,Calculated 286.7 MOS/KG (273-304); Potassium 3.7 MMOL/L (3.5-5.1); Total Protein 7.3 G/DL (6.4-8.2)
[2022-04-23 14:00] LABS: Eosinophils 1 % (0-10); Lymphocytes 6 % (20-55)
[2022-04-23 14:01] LABS: Platelet Estimate Increased; Total Cells Counted 100
[2022-04-23] MEDS ORDERED: VANCOMYCIN INJ 1,000 MG in SODIUM CHLORIDE 0.9% 250 ML IV STA (15:28)
[2022-04-23] MEDS ORDERED: ONDANSETRON 4 MG/2 ML VIAL IV PRN (15:56)
[2022-04-23] MEDS ORDERED: GLUCAGON 1 MG VIAL IM PRN (15:56)
[2022-04-23] MEDS ORDERED: KETOROLAC 30 MG/1 ML VIAL IV PRN (16:03)
[2022-04-23] MEDS ORDERED: MORPHINE 2 MG/1 ML SYRINGE IV PRN (16:17)
[2022-04-23] MEDS ORDERED: DEXTROSE 10% 250 ML BAG IV PRN (16:25)
[2022-04-23] MEDS: LACTATED RINGERS 1,000 ML IV SCH (18:20)
[2022-04-23] MEDS: INSULIN LISPRO 100 UNIT/ML SUBCUT SCH (20:54)
[2022-04-24 06:37] LABS: Basophils % 0.2 % (0.0-0.8); Eosinophils # 0.1 10*3/uL (0.0-0.87); Eosinophils % 0.4 % (0.00-10.9); Hematocrit 29.3 VOL% (42.0-52.0); Hemoglobin 9.1 GM/DL (14.0-18.0); Immature Granulocytes % 1.2 %; Immature Granulocytes Absolute 0.26 #; Lymphocytes # 1.2 10*3/uL (1.4-4.0); Lymphocytes % 5.5 % (21.2-54.2); Mean Corpuscular HGB Conc 31.1 GM/DL (32-36); Mean Corpuscular Volume 93.9 FL (87-102); Mean Platelet Volume 9.8 FL (9.6-12.0); Monocytes # 1.5 10*3/uL (0.11-0.8); Monocytes % 6.6 % (1.7-12.7); Neutrophils % 86.1 % (38.7-73.9); Platelet Count 298 T/CUMM (130-400); Red Blood Count 3.12 MC/CUMM (3.8-5.5); Red Cell Distribution Width 12.1 % (9.3-17.3); White Blood Count 22.1 T/CUMM (4-12)
[2022-04-24 07:10] LABS: Calcium 8.3 MG/DL (8.5-10.1); Osmolality,Calculated 284.4 MOS/KG (273-304); Potassium 3.5 MMOL/L (3.5-5.1)
[2022-04-24] MEDS: INSULIN LISPRO 100 UNIT/ML SUBCUT SCH ×4 (07:27→21:55)
[2022-04-24] MEDS ORDERED: FUROSEMIDE 20 MG/2 ML VIAL IV SCH (08:00)
[2022-04-24] MEDS ORDERED: DEXTROSE 10% 250 ML BAG IV PRN (08:17)
[2022-04-24] MEDS ORDERED: PANTOPRAZOLE 40 MG VIAL IV SCH (09:00)
[2022-04-24] MEDS: PIPERACILLIN/TAZOBACTAM 3,375 MG in SODIUM CHLORIDE 0.9% 100 ML IV SCH ×2 (09:19→18:21)
[2022-04-24] MEDS: ACETAMINOPHEN 325 MG TABLET PO PRN (09:19)
[2022-04-24] MEDS: LACTATED RINGERS 1,000 ML IV SCH (14:45)
[2022-04-24] MEDS: ENOXAPARIN 40 MG/0.4 ML SYRINGE SUBCUT SCH (15:14)
[2022-04-24] MEDS ORDERED: VANCOMYCIN INJ 1,250 MG in SODIUM CHLORIDE 0.9% 250 ML IV SCH (16:00)
[2022-04-25] MEDS: PIPERACILLIN/TAZOBACTAM 3,375 MG in SODIUM CHLORIDE 0.9% 100 ML IV SCH ×3 (02:22→21:47)
[2022-04-25 06:16] LABS: Basophils % 0.2 % (0.0-0.8); Eosinophils # 0.1 10*3/uL (0.0-0.87); Eosinophils % 0.4 % (0.00-10.9); Hematocrit 28.2 VOL% (42.0-52.0); Immature Granulocytes % 2.1 %; Immature Granulocytes Absolute 0.55 #; Lymphocytes # 1.5 10*3/uL (1.4-4.0); Lymphocytes % 5.5 % (21.2-54.2); Mean Corpuscular HGB Conc 31.9 GM/DL (32-36); Mean Corpuscular Volume 93.7 FL (87-102); Mean Platelet Volume 9.8 FL (9.6-12.0); Monocytes # 1.5 10*3/uL (0.11-0.8); Monocytes % 5.8 % (1.7-12.7); Platelet Count 318 T/CUMM (130-400); Red Blood Count 3.01 MC/CUMM (3.8-5.5); Red Cell Distribution Width 12.3 % (9.3-17.3); White Blood Count 26.5 T/CUMM (4-12)
[2022-04-25 06:42] LABS: Band Neutrophils 1 % (0-10); Eosinophils 1 % (0-10); Hypochromia Slight; Lymphocytes 5 % (20-55); Platelet Estimate Adequate; Total Cells Counted 100
[2022-04-25 06:43] LABS: Alanine Aminotransferase < 9 U/L (16-61); Alkaline Phosphatase 96 U/L (45-117); Aspartate Amino Transferase 9 U/L (0-37); Blood Urea Nitrogen 29 MG/DL (7-18); Calcium 7.9 MG/DL (8.5-10.1); Carbon Dioxide 23 MMOL/L (21-32); Chloride 104 MMOL/L (98-107); Glucose 156 MG/DL (74-106); Potassium 3.4 MMOL/L (3.5-5.1); Sodium 136 MMOL/L (136-145); Total Protein 6.3 G/DL (6.4-8.2)
[2022-04-25] MEDS: INSULIN LISPRO 100 UNIT/ML SUBCUT SCH ×4 (08:26→21:47)
[2022-04-25] MEDS ORDERED: GABAPENTIN 100 MG CAPSULE PO PRN (09:00)
[2022-04-25] MEDS: PANTOPRAZOLE 40 MG TABLET PO SCH (10:08)
[2022-04-25] MEDS: BUMETANIDE 1 MG TABLET PO SCH (14:37)
[2022-04-25] MEDS: SACUBITRIL/VALSARTAN 49-51 MG TABLET PO SCH ×2 (14:37→21:47)
[2022-04-25] MEDS: ENOXAPARIN 40 MG/0.4 ML SYRINGE SUBCUT SCH (14:37)
[2022-04-25] MEDS: AMIODARONE 200 MG TABLET PO SCH (14:38)
[2022-04-25] MEDS ORDERED: POTASSIUM CHLORIDE 20 MEQ TABLET PO ONE (15:00)
[2022-04-25] MEDS ORDERED: cefTRIAXone 2,000 MG in SODIUM CHLORIDE 0.9% 100 ML IV SCH (15:00)
[2022-04-25] MEDS: carvediloL 12.5 MG TABLET PO SCH (17:05)
[2022-04-25] MEDS: POTASSIUM CHLORIDE 20 MEQ TABLET PO PRN (17:06)
[2022-04-25] MEDS: ACETAMINOPHEN 325 MG TABLET PO PRN (17:30)
[2022-04-25] MEDS ORDERED: VANCOMYCIN INJ 1,250 MG in SODIUM CHLORIDE 0.9% 250 ML IV SCH (17:30)
[2022-04-26] MEDS: VANCOMYCIN INJ 1,250 MG in SODIUM CHLORIDE 0.9% 250 ML IV SCH (01:37)
[2022-04-26] MEDS: PIPERACILLIN/TAZOBACTAM 3,375 MG in SODIUM CHLORIDE 0.9% 100 ML IV SCH ×3 (04:29→20:13)
[2022-04-26 05:45] LABS: Basophils % 0.1 % (0.0-0.8); Eosinophils # 0.3 10*3/uL (0.0-0.87); Eosinophils % 1.2 % (0.00-10.9); Hematocrit 26.5 VOL% (42.0-52.0); Hemoglobin 8.6 GM/DL (14.0-18.0); Immature Granulocytes % 2.7 %; Immature Granulocytes Absolute 0.63 #; Lymphocytes # 1.5 10*3/uL (1.4-4.0); Lymphocytes % 6.2 % (21.2-54.2); Mean Corpuscular HGB Conc 32.5 GM/DL (32-36); Mean Corpuscular Volume 93.3 FL (87-102); Mean Platelet Volume 10.1 FL (9.6-12.0); Monocytes # 0.8 10*3/uL (0.11-0.8); Monocytes % 3.5 % (1.7-12.7); Neutrophils % 86.3 % (38.7-73.9); Platelet Count 328 T/CUMM (130-400); Red Blood Count 2.84 MC/CUMM (3.8-5.5); Red Cell Distribution Width 12.4 % (9.3-17.3); White Blood Count 23.3 T/CUMM (4-12)
[2022-04-26 06:03] LABS: Albumin 1.9 G/DL (3.4-5.0); Bilirubin,Total 0.6 MG/DL (0.20-1.00); Calcium 7.9 MG/DL (8.5-10.1); Potassium 3.6 MMOL/L (3.5-5.1); Total Protein 6.2 G/DL (6.4-8.2)
[2022-04-26 06:07] LABS: Band Neutrophils 4 % (0-10); Eosinophils 4 % (0-10); Lymphocytes 5 % (20-55); Metamyelocytes 1 %; Total Cells Counted 100
[2022-04-26] MEDS: INSULIN LISPRO 100 UNIT/ML SUBCUT SCH ×4 (07:41→21:23)
[2022-04-26] MEDS: PANTOPRAZOLE 40 MG TABLET PO SCH (09:17)
[2022-04-26] MEDS: AMIODARONE 200 MG TABLET PO SCH (09:17)
[2022-04-26] MEDS: BUMETANIDE 1 MG TABLET PO SCH (09:17)
[2022-04-26] MEDS: SACUBITRIL/VALSARTAN 49-51 MG TABLET PO SCH ×2 (09:17→21:23)
[2022-04-26] MEDS: carvediloL 12.5 MG TABLET PO SCH ×2 (09:18→16:44)
[2022-04-26] MEDS: SILVER SULFADIAZINE 1% CREAM 25 GM TUBE TOP SCH (12:50)
[2022-04-26] MEDS: ENOXAPARIN 40 MG/0.4 ML SYRINGE SUBCUT SCH (13:07)
[2022-04-27] MEDS: VANCOMYCIN INJ 1,250 MG in SODIUM CHLORIDE 0.9% 250 ML IV SCH (01:09)
[2022-04-27] MEDS: PIPERACILLIN/TAZOBACTAM 3,375 MG in SODIUM CHLORIDE 0.9% 100 ML IV SCH ×3 (04:53→21:44)
[2022-04-27 05:21] LABS: Basophils # 0.1 10*3/uL (0.0-0.2); Basophils % 0.2 % (0.0-0.8); Eosinophils # 0.3 10*3/uL (0.0-0.87); Eosinophils % 1.4 % (0.00-10.9); Immature Granulocytes % 2.4 %; Immature Granulocytes Absolute 0.52 #; Lymphocytes # 1.4 10*3/uL (1.4-4.0); Lymphocytes % 6.1 % (21.2-54.2); Mean Corpuscular HGB Conc 32.1 GM/DL (32-36); Monocytes # 1.4 10*3/uL (0.11-0.8); Monocytes % 6.3 % (1.7-12.7); Neutrophils % 83.6 % (38.7-73.9); Platelet Count 352 T/CUMM (130-400); Red Blood Count 2.98 MC/CUMM (3.8-5.5); Red Cell Distribution Width 12.8 % (9.3-17.3); White Blood Count 22.1 T/CUMM (4-12)
[2022-04-27 05:40] LABS: Albumin 1.9 G/DL (3.4-5.0); Bilirubin,Total 0.4 MG/DL (0.20-1.00); Calcium 7.7 MG/DL (8.5-10.1); Osmolality,Calculated 281.1 MOS/KG (273-304); Potassium 3.5 MMOL/L (3.5-5.1); Total Protein 6.5 G/DL (6.4-8.2)
[2022-04-27 05:45] LABS: Eosinophils 1 % (0-10); Hypochromia Slight; Lymphocytes 2 % (20-55); Microcytosis Slight; Total Cells Counted 100
[2022-04-27 05:46] LABS: Calcium 7.9 MG/DL (8.5-10.1); Osmolality,Calculated 278.2 MOS/KG (273-304); Platelet Estimate Adequate; Potassium 3.8 MMOL/L (3.5-5.1)
[2022-04-27] MEDS: INSULIN LISPRO 100 UNIT/ML SUBCUT SCH ×4 (08:37→21:45)
[2022-04-27] MEDS: carvediloL 12.5 MG TABLET PO SCH ×2 (08:38→16:25)
[2022-04-27] MEDS: PANTOPRAZOLE 40 MG TABLET PO SCH (08:38)
[2022-04-27] MEDS: AMIODARONE 200 MG TABLET PO SCH (08:38)
[2022-04-27] MEDS: SACUBITRIL/VALSARTAN 49-51 MG TABLET PO SCH ×2 (08:38→21:44)
[2022-04-27] MEDS: BUMETANIDE 1 MG TABLET PO SCH (08:38)
[2022-04-27] MEDS: SILVER SULFADIAZINE 1% CREAM 25 GM TUBE TOP SCH (10:00)
[2022-04-27] MEDS: ENOXAPARIN 40 MG/0.4 ML SYRINGE SUBCUT SCH (14:38)
[2022-04-27] MEDS: SODIUM CHLORIDE 0.9% 1,000 ML IV SCH (16:11)
[2022-04-28 01:27] LABS: Basophils % 0.2 % (0.0-0.8); Eosinophils # 0.4 10*3/uL (0.0-0.87); Eosinophils % 1.8 % (0.00-10.9); Hemoglobin 8.1 GM/DL (14.0-18.0); Immature Granulocytes % 2.4 %; Immature Granulocytes Absolute 0.54 #; Lymphocytes # 1.4 10*3/uL (1.4-4.0); Lymphocytes % 6.2 % (21.2-54.2); Mean Corpuscular HGB Conc 32.4 GM/DL (32-36); Mean Corpuscular Volume 92.6 FL (87-102); Monocytes # 1.6 10*3/uL (0.11-0.8); Monocytes % 7.4 % (1.7-12.7); Platelet Count 343 T/CUMM (130-400); Red Cell Distribution Width 12.9 % (9.3-17.3); White Blood Count 22.2 T/CUMM (4-12)
[2022-04-28 01:45] LABS: Alanine Aminotransferase < 9 U/L (16-61); Albumin 1.6 G/DL (3.4-5.0); Alkaline Phosphatase 100 U/L (45-117); Aspartate Amino Transferase 7 U/L (0-37); Blood Urea Nitrogen 33 MG/DL (7-18); Calcium 7.7 MG/DL (8.5-10.1); Carbon Dioxide 22 MMOL/L (21-32); Chloride 102 MMOL/L (98-107); Glucose 162 MG/DL (74-106); Osmolality,Calculated 276.4 MOS/KG (273-304); Potassium 3.3 MMOL/L (3.5-5.1); Sodium 133 MMOL/L (136-145); Total Protein 6.3 G/DL (6.4-8.2)
[2022-04-28 01:54] LABS: Eosinophils 3 % (0-10); Lymphocytes 4 % (20-55); Platelet Estimate Adequate; Total Cells Counted 100
[2022-04-28] MEDS: VANCOMYCIN INJ 1,250 MG in SODIUM CHLORIDE 0.9% 250 ML IV SCH (02:47)
[2022-04-28] MEDS: PIPERACILLIN/TAZOBACTAM 3,375 MG in SODIUM CHLORIDE 0.9% 100 ML IV SCH ×3 (04:44→21:00)
[2022-04-28] MEDS ORDERED: CLINDAMYCIN INJ 900 MG/50 ML PREMIX IV ONE (07:30)
[2022-04-28] MEDS: SODIUM CHLORIDE 0.9% 1,000 ML IV SCH ×2 (07:39→14:21)
[2022-04-28] MEDS: INSULIN LISPRO 100 UNIT/ML SUBCUT SCH ×4 (07:39→21:01)
[2022-04-28] MEDS: PANTOPRAZOLE 40 MG TABLET PO SCH (09:07)
[2022-04-28] MEDS: carvediloL 12.5 MG TABLET PO SCH ×2 (09:07→17:26)
[2022-04-28] MEDS: AMIODARONE 200 MG TABLET PO SCH (09:07)
[2022-04-28] MEDS ORDERED: BUPIVACAINE MPF 0.5% 30 ML VIAL ONE (09:46)
[2022-04-28] MEDS ORDERED: LIDOCAINE 2% 5 ML VIAL ONE (09:46)
[2022-04-28] MEDS ORDERED: MIDAZOLAM 2 MG/2 ML VIAL ONE (09:46)
[2022-04-28] MEDS ORDERED: LIDOCAINE 1% 5 ML VIAL ONE (09:46)
[2022-04-28] MEDS: SILVER SULFADIAZINE 1% CREAM 25 GM TUBE TOP SCH (10:31)
[2022-04-28] MEDS: ENOXAPARIN 30 MG/0.3 ML SYRINGE SUBCUT SCH (10:31)
[2022-04-28] MEDS ORDERED: ETOMIDATE 40 MG/20 ML VIAL IV ONE (11:02)
[2022-04-28] MEDS: SACUBITRIL/VALSARTAN 49-51 MG TABLET PO SCH ×2 (12:22→21:01)
[2022-04-28] MEDS: BUMETANIDE 1 MG TABLET PO SCH (14:09)
[2022-04-28] MEDS: POTASSIUM CHLORIDE 20 MEQ TABLET PO PRN ×3 (14:10→17:26)
[2022-04-29] MEDS: VANCOMYCIN INJ 1,250 MG in SODIUM CHLORIDE 0.9% 250 ML IV SCH (02:02)
[2022-04-29] MEDS: PIPERACILLIN/TAZOBACTAM 3,375 MG in SODIUM CHLORIDE 0.9% 100 ML IV SCH ×3 (04:55→21:37)
[2022-04-29 05:10] LABS: Basophils # 0.1 10*3/uL (0.0-0.2); Basophils % 0.4 % (0.0-0.8); Eosinophils # 0.5 10*3/uL (0.0-0.87); Eosinophils % 2.9 % (0.00-10.9); Hematocrit 25.7 VOL% (42.0-52.0); Hemoglobin 8.3 GM/DL (14.0-18.0); Immature Granulocytes % 3.4 %; Immature Granulocytes Absolute 0.58 #; Lymphocytes # 1.3 10*3/uL (1.4-4.0); Lymphocytes % 7.8 % (21.2-54.2); Mean Corpuscular HGB Conc 32.3 GM/DL (32-36); Mean Corpuscular Volume 93.8 FL (87-102); Mean Platelet Volume 9.6 FL (9.6-12.0); Monocytes # 1.9 10*3/uL (0.11-0.8); Monocytes % 11.2 % (1.7-12.7); Neutrophils % 74.3 % (38.7-73.9); Platelet Count 336 T/CUMM (130-400); Red Blood Count 2.74 MC/CUMM (3.8-5.5); Red Cell Distribution Width 13.1 % (9.3-17.3); White Blood Count 17.1 T/CUMM (4-12)
[2022-04-29 05:29] LABS: Alanine Aminotransferase < 9 U/L (16-61); Albumin 1.6 G/DL (3.4-5.0); Alkaline Phosphatase 99 U/L (45-117); Aspartate Amino Transferase 7 U/L (0-37); Blood Urea Nitrogen 36 MG/DL (7-18); Calcium 7.8 MG/DL (8.5-10.1); Carbon Dioxide 21 MMOL/L (21-32); Chloride 106 MMOL/L (98-107); Glucose 168 MG/DL (74-106); Osmolality,Calculated 279.2 MOS/KG (273-304); Potassium 3.9 MMOL/L (3.5-5.1); Sodium 134 MMOL/L (136-145); Total Protein 6.2 G/DL (6.4-8.2)
[2022-04-29 05:36] LABS: Eosinophils 5 % (0-10); Lymphocytes 5 % (20-55); Total Cells Counted 100
[2022-04-29 05:37] LABS: Platelet Estimate Adequate; Stomatocytes Few
[2022-04-29] MEDS: INSULIN LISPRO 100 UNIT/ML SUBCUT SCH ×4 (10:34→21:15)
[2022-04-29] MEDS: BUMETANIDE 1 MG TABLET PO SCH (10:40)
[2022-04-29] MEDS: SACUBITRIL/VALSARTAN 49-51 MG TABLET PO SCH ×2 (10:40→21:36)
[2022-04-29] MEDS: carvediloL 12.5 MG TABLET PO SCH ×2 (10:41→17:50)
[2022-04-29] MEDS: AMIODARONE 200 MG TABLET PO SCH (10:42)
[2022-04-29] MEDS: PANTOPRAZOLE 40 MG TABLET PO SCH (10:42)
[2022-04-29] MEDS: ENOXAPARIN 30 MG/0.3 ML SYRINGE SUBCUT SCH (10:43)
[2022-04-29] MEDS: SODIUM CHLORIDE 0.9% 1,000 ML IV SCH (10:44)
[2022-04-29] MEDS: SILVER SULFADIAZINE 1% CREAM 25 GM TUBE TOP SCH (10:51)
[2022-04-29] MEDS: SODIUM HYPOCHLORITE 0.25% IRRIG 473 ML BOTTLE TOP SCH (13:17)
[2022-04-30] MEDS: PIPERACILLIN/TAZOBACTAM 3,375 MG in SODIUM CHLORIDE 0.9% 100 ML IV SCH ×3 (03:45→21:59)
[2022-04-30] MEDS: VANCOMYCIN INJ 1,250 MG in SODIUM CHLORIDE 0.9% 250 ML IV SCH (03:48)
[2022-04-30 04:49] LABS: Basophils % 0.3 % (0.0-0.8); Eosinophils # 0.5 10*3/uL (0.0-0.87); Eosinophils % 3.7 % (0.00-10.9); Hematocrit 24.9 VOL% (42.0-52.0); Hemoglobin 7.9 GM/DL (14.0-18.0); Immature Granulocytes % 3.9 %; Immature Granulocytes Absolute 0.51 #; Lymphocytes # 1.8 10*3/uL (1.4-4.0); Lymphocytes % 13.5 % (21.2-54.2); Mean Corpuscular HGB Conc 31.7 GM/DL (32-36); Mean Corpuscular Volume 94.3 FL (87-102); Mean Platelet Volume 9.4 FL (9.6-12.0); Monocytes # 1.4 10*3/uL (0.11-0.8); Monocytes % 10.8 % (1.7-12.7); Neutrophils % 67.8 % (38.7-73.9); Platelet Count 359 T/CUMM (130-400); Red Blood Count 2.64 MC/CUMM (3.8-5.5); Red Cell Distribution Width 13.2 % (9.3-17.3); White Blood Count 13.1 T/CUMM (4-12)
[2022-04-30 05:05] LABS: Calcium 7.8 MG/DL (8.5-10.1); Osmolality,Calculated 285.7 MOS/KG (273-304); Potassium 3.9 MMOL/L (3.5-5.1)
[2022-04-30 06:17] LABS: Eosinophils 1 % (0-10); Hypochromia Slight; Lymphocytes 14 % (20-55); Microcytosis Slight; Platelet Estimate Adequate; Total Cells Counted 100
[2022-04-30] MEDS: SODIUM CHLORIDE 0.9% 1,000 ML IV SCH (06:42)
[2022-04-30] MEDS: INSULIN LISPRO 100 UNIT/ML SUBCUT SCH ×4 (08:45→21:59)
[2022-04-30] MEDS: SILVER SULFADIAZINE 1% CREAM 25 GM TUBE TOP SCH (09:33)
[2022-04-30] MEDS: AMIODARONE 200 MG TABLET PO SCH (09:34)
[2022-04-30] MEDS: SACUBITRIL/VALSARTAN 49-51 MG TABLET PO SCH ×2 (09:34→22:00)
[2022-04-30] MEDS: carvediloL 12.5 MG TABLET PO SCH ×2 (09:34→16:45)
[2022-04-30] MEDS: BUMETANIDE 1 MG TABLET PO SCH (09:34)
[2022-04-30] MEDS: PANTOPRAZOLE 40 MG TABLET PO SCH (09:34)
[2022-04-30] MEDS: SODIUM HYPOCHLORITE 0.25% IRRIG 473 ML BOTTLE TOP SCH (09:35)
[2022-04-30] MEDS: ENOXAPARIN 30 MG/0.3 ML SYRINGE SUBCUT SCH (09:38)
[2022-05-01] MEDS: PIPERACILLIN/TAZOBACTAM 3,375 MG in SODIUM CHLORIDE 0.9% 100 ML IV SCH ×3 (03:29→20:46)
[2022-05-01 03:49] LABS: Basophils # 0.1 10*3/uL (0.0-0.2); Basophils % 0.4 % (0.0-0.8); Eosinophils # 0.5 10*3/uL (0.0-0.87); Eosinophils % 4.2 % (0.00-10.9); Hematocrit 26.4 VOL% (42.0-52.0); Hemoglobin 8.5 GM/DL (14.0-18.0); Immature Granulocytes % 5.5 %; Immature Granulocytes Absolute 0.64 #; Lymphocytes # 1.8 10*3/uL (1.4-4.0); Lymphocytes % 15.3 % (21.2-54.2); Mean Corpuscular HGB Conc 32.2 GM/DL (32-36); Mean Corpuscular Volume 93.3 FL (87-102); Mean Platelet Volume 9.1 FL (9.6-12.0); Monocytes # 1.3 10*3/uL (0.11-0.8); Monocytes % 10.7 % (1.7-12.7); Neutrophils % 63.9 % (38.7-73.9); Platelet Count 368 T/CUMM (130-400); Red Blood Count 2.83 MC/CUMM (3.8-5.5); Red Cell Distribution Width 13.2 % (9.3-17.3); White Blood Count 11.7 T/CUMM (4-12)
[2022-05-01 04:06] LABS: Calcium 7.6 MG/DL (8.5-10.1); Osmolality,Calculated 282.7 MOS/KG (273-304); Potassium 3.8 MMOL/L (3.5-5.1)
[2022-05-01 04:07] LABS: Eosinophils 7 % (0-10); Hypochromia Slight; Lymphocytes 13 % (20-55); Microcytosis Slight; Platelet Estimate Adequate; Total Cells Counted 100
[2022-05-01] MEDS: SODIUM CHLORIDE 0.9% 1,000 ML IV SCH (04:25)
[2022-05-01] MEDS: VANCOMYCIN INJ 1,250 MG in SODIUM CHLORIDE 0.9% 250 ML IV SCH ×2 (04:31→16:32)
[2022-05-01] MEDS: INSULIN LISPRO 100 UNIT/ML SUBCUT SCH ×4 (07:30→20:47)
[2022-05-01] MEDS ORDERED: VANCOMYCIN INJ 1,000 MG in SODIUM CHLORIDE 0.9% 250 ML IV SCH (08:00)
[2022-05-01] MEDS: PANTOPRAZOLE 40 MG TABLET PO SCH (09:45)
[2022-05-01] MEDS: SODIUM HYPOCHLORITE 0.25% IRRIG 473 ML BOTTLE TOP SCH (09:45)
[2022-05-01] MEDS: carvediloL 12.5 MG TABLET PO SCH ×2 (09:45→17:34)
[2022-05-01] MEDS: AMIODARONE 200 MG TABLET PO SCH (09:45)
[2022-05-01] MEDS: BUMETANIDE 1 MG TABLET PO SCH (09:45)
[2022-05-01] MEDS: SACUBITRIL/VALSARTAN 49-51 MG TABLET PO SCH ×2 (09:45→20:46)
[2022-05-01] MEDS: ENOXAPARIN 30 MG/0.3 ML SYRINGE SUBCUT SCH (09:46)
[2022-05-01] MEDS: SILVER SULFADIAZINE 1% CREAM 25 GM TUBE TOP SCH (09:47)
[2022-05-02] MEDS: SODIUM CHLORIDE 0.9% 1,000 ML IV SCH (03:28)
[2022-05-02] MEDS: PIPERACILLIN/TAZOBACTAM 3,375 MG in SODIUM CHLORIDE 0.9% 100 ML IV SCH (03:40)
[2022-05-02] MEDS: INSULIN LISPRO 100 UNIT/ML SUBCUT SCH ×4 (08:49→22:01)
[2022-05-02] MEDS: PANTOPRAZOLE 40 MG TABLET PO SCH (09:04)
[2022-05-02] MEDS: carvediloL 12.5 MG TABLET PO SCH ×2 (09:04→17:13)
[2022-05-02] MEDS: AMIODARONE 200 MG TABLET PO SCH (09:04)
[2022-05-02] MEDS: BUMETANIDE 1 MG TABLET PO SCH (09:04)
[2022-05-02] MEDS: SACUBITRIL/VALSARTAN 49-51 MG TABLET PO SCH ×2 (09:04→21:59)
[2022-05-02] MEDS: SODIUM HYPOCHLORITE 0.25% IRRIG 473 ML BOTTLE TOP SCH (09:05)
[2022-05-02] MEDS: ENOXAPARIN 30 MG/0.3 ML SYRINGE SUBCUT SCH (09:05)
[2022-05-02] MEDS: SILVER SULFADIAZINE 1% CREAM 25 GM TUBE TOP SCH (09:06)
[2022-05-03] MEDS: VANCOMYCIN INJ 1,250 MG in SODIUM CHLORIDE 0.9% 250 ML IV SCH (03:31)
[2022-05-03] MEDS: SODIUM CHLORIDE 0.9% 1,000 ML IV SCH (03:31)
[2022-05-03] MEDS ORDERED: LEVOFLOXACIN INJ 750 MG/150 ML PREMIX IV SCH (09:00)
[2022-05-03] MEDS: INSULIN LISPRO 100 UNIT/ML SUBCUT SCH ×4 (09:32→20:50)
[2022-05-03] MEDS: LEVOFLOXACIN INJ 750 MG/150 ML PREMIX IV SCH (09:34)
[2022-05-03] MEDS: PANTOPRAZOLE 40 MG TABLET PO SCH (09:35)
[2022-05-03] MEDS: carvediloL 12.5 MG TABLET PO SCH ×2 (09:35→16:32)
[2022-05-03] MEDS: SACUBITRIL/VALSARTAN 49-51 MG TABLET PO SCH ×2 (09:35→20:50)
[2022-05-03] MEDS: ENOXAPARIN 30 MG/0.3 ML SYRINGE SUBCUT SCH (09:35)
[2022-05-03] MEDS: BUMETANIDE 1 MG TABLET PO SCH (09:35)
[2022-05-03] MEDS: AMIODARONE 200 MG TABLET PO SCH (09:36)
[2022-05-03] MEDS: SODIUM HYPOCHLORITE 0.25% IRRIG 473 ML BOTTLE TOP SCH (09:36)
[2022-05-03] MEDS ORDERED: FUROSEMIDE 40 MG/4 ML VIAL IV ONE (11:35)
[2022-05-03] MEDS: SILVER SULFADIAZINE 1% CREAM 25 GM TUBE TOP SCH (11:38)
[2022-05-04 06:22] LABS: Basophils # 0.1 10*3/uL (0.0-0.2); Basophils % 0.5 % (0.0-0.8); Eosinophils # 0.3 10*3/uL (0.0-0.87); Eosinophils % 2.3 % (0.00-10.9); Hematocrit 27.2 VOL% (42.0-52.0); Hemoglobin 8.4 GM/DL (14.0-18.0); Immature Granulocytes % 3.6 %; Lymphocytes # 1.7 10*3/uL (1.4-4.0); Mean Corpuscular HGB Conc 30.9 GM/DL (32-36); Mean Corpuscular Volume 96.8 FL (87-102); Mean Platelet Volume 9.4 FL (9.6-12.0); Monocytes # 1.1 10*3/uL (0.11-0.8); Monocytes % 9.6 % (1.7-12.7); Platelet Count 418 T/CUMM (130-400); Red Blood Count 2.81 MC/CUMM (3.8-5.5); Red Cell Distribution Width 13.3 % (9.3-17.3); White Blood Count 11.2 T/CUMM (4-12)
[2022-05-04 06:42] LABS: Calcium 8.3 MG/DL (8.5-10.1); Osmolality,Calculated 288.3 MOS/KG (273-304); Potassium 4.1 MMOL/L (3.5-5.1)
[2022-05-04] MEDS: SILVER SULFADIAZINE 1% CREAM 25 GM TUBE TOP SCH (08:32)
[2022-05-04] MEDS: SODIUM HYPOCHLORITE 0.25% IRRIG 473 ML BOTTLE TOP SCH (08:32)
[2022-05-04] MEDS: INSULIN LISPRO 100 UNIT/ML SUBCUT SCH ×4 (08:32→21:10)
[2022-05-04] MEDS: BUMETANIDE 1 MG TABLET PO SCH (10:13)
[2022-05-04] MEDS: PANTOPRAZOLE 40 MG TABLET PO SCH (10:13)
[2022-05-04] MEDS: carvediloL 12.5 MG TABLET PO SCH ×2 (10:14→16:38)
[2022-05-04] MEDS: SACUBITRIL/VALSARTAN 49-51 MG TABLET PO SCH ×2 (10:14→21:07)
[2022-05-04] MEDS: AMIODARONE 200 MG TABLET PO SCH (10:15)
[2022-05-04] MEDS: ENOXAPARIN 30 MG/0.3 ML SYRINGE SUBCUT SCH (10:15)
[2022-05-05 06:10] LABS: Basophils # 0.1 10*3/uL (0.0-0.2); Basophils % 0.5 % (0.0-0.8); Eosinophils # 0.2 10*3/uL (0.0-0.87); Eosinophils % 2.5 % (0.00-10.9); Hematocrit 25.5 VOL% (42.0-52.0); Hemoglobin 7.8 GM/DL (14.0-18.0); Immature Granulocytes % 5.2 %; Lymphocytes # 1.4 10*3/uL (1.4-4.0); Mean Corpuscular HGB Conc 30.6 GM/DL (32-36); Mean Corpuscular Volume 95.5 FL (87-102); Mean Platelet Volume 8.9 FL (9.6-12.0); Monocytes # 0.9 10*3/uL (0.11-0.8); Monocytes % 9.4 % (1.7-12.7); Neutrophils % 67.4 % (38.7-73.9); Platelet Count 365 T/CUMM (130-400); Red Blood Count 2.67 MC/CUMM (3.8-5.5); Red Cell Distribution Width 13.6 % (9.3-17.3); White Blood Count 9.6 T/CUMM (4-12)
[2022-05-05 06:27] LABS: Calcium 8.4 MG/DL (8.5-10.1); Osmolality,Calculated 280.5 MOS/KG (273-304); Potassium 4.1 MMOL/L (3.5-5.1)
[2022-05-05 06:35] LABS: Eosinophils 1 % (0-10); Hypochromia Slight; Lymphocytes 14 % (20-55); Microcytosis Slight; Platelet Estimate Adequate; Total Cells Counted 100
[2022-05-05] MEDS ORDERED: MAGNESIUM SULF RIDER 4 GM/100 ML PREMIX IV PRN (06:38)
[2022-05-05] MEDS ORDERED: MAGNESIUM SULF RIDER 2 GM/50 ML PREMIX IV PRN (06:38)
[2022-05-05] MEDS: INSULIN LISPRO 100 UNIT/ML SUBCUT SCH ×2 (08:26→11:49)
[2022-05-05] MEDS: BUMETANIDE 1 MG TABLET PO SCH (09:48)
[2022-05-05] MEDS: AMIODARONE 200 MG TABLET PO SCH (09:48)
[2022-05-05] MEDS: PANTOPRAZOLE 40 MG TABLET PO SCH (09:48)
[2022-05-05] MEDS: SACUBITRIL/VALSARTAN 49-51 MG TABLET PO SCH (09:48)
[2022-05-05] MEDS: ENOXAPARIN 30 MG/0.3 ML SYRINGE SUBCUT SCH (09:49)
[2022-05-05] MEDS: LEVOFLOXACIN INJ 750 MG/150 ML PREMIX IV SCH (09:49)
[2022-05-05] MEDS: SILVER SULFADIAZINE 1% CREAM 25 GM TUBE TOP SCH (09:49)
[2022-05-05] MEDS: SODIUM HYPOCHLORITE 0.25% IRRIG 473 ML BOTTLE TOP SCH (09:49)
[2022-05-05] MEDS: carvediloL 12.5 MG TABLET PO SCH (09:51)
[2022-05-05 11:38] VITALS: BP 150/99
== END 2022-05-05 14:13 | DRG 264 ==
LOC: N.ED 12:12 → N.5E 15:56 → SUATTDRO 15:56 → N.5E 18:39
PROVIDERS: ADMIT Phlebology; ATTEND Internal Medicine